=== PATIENT | male | born 1985 | race Two or more races ===

== ENCOUNTER 2020-01-03 06:24 | Outpatient (REF) | payer OTHER, SELFPAY | END 2020-01-03 06:25 | disposition home or self-care (01) | LOC: HO.LAB 06:24 | PROVIDERS: Visit Provider Internal Medicine | DX: Z20.828 Contact with and (suspected) exposure to other viral communicable diseases (principal) | CPT/HCPCS: C9803; U0003 ==

== ENCOUNTER 2020-05-28 07:56 | Outpatient (REF) | payer OTHER, SELFPAY ==
[2020-05-28 08:32] LABS: COVID-19 Test Negative (Negative)
== END 2020-05-28 07:57 | disposition home or self-care (01) ==
LOC: HO.LAB 07:56
PROVIDERS: Visit Provider Internal Medicine
DX: Z20.822 Contact with and (suspected) exposure to COVID-19 (principal)
CPT/HCPCS: 36415; 87635; C9803

== ENCOUNTER 2020-05-31 19:58 | Emergency (ER) | payer SELFPAY ==
[2020-05-31 21:05] VITALS: BP 104/59; PULSE 84; RESP 18; TEMP 36.9; O2SAT 95; BMI 29.0
[2020-05-31 22:37] VITALS: BP 106/60; PULSE 76; RESP 18; TEMP 36.7; O2SAT 95
--- NOTE | 2020-05-31 23:06 | ED.GENADULT ---
HPI - General Adult General Chief complaint: General Medical Stated complaint: SOAR THROAT Time Seen by Provider: 05/31/20 23:01 Source: patient Mode of arrival: ambulatory History of Present Illness HPI narrative: 35-year-old male without significant past medical history who presents with onset of sore throat earlier in the afternoon without associated fevers, chills, cough, or sick contacts. The patient denies any difficulty breathing or swallowing. Related Data Allergies Allergy/AdvReac Type Severity Reaction Status Date / Time No Known Allergies Allergy Verified 05/31/20 21:05 [No Known Allergies*] Review of Systems Review of Systems: Pertinent positives and negatives as stated in HPI 10 point review of systems is otherwise negative. [facility] Past Medical History Source: nursing notes reviewed Medical History No known health problems Social History Social History Advance Directives: No Advance Directives Information Provided: No Physical Exam Vital Signs: Vital Signs: Last Vital Signs Temp 98.1 F 05/31/20 22:37 Pulse 76 05/31/20 22:37 Resp 18 05/31/20 22:37 BP 106/60 05/31/20 22:37 Pulse Ox 95 05/31/20 22:37 Body Mass Index 29.0 VITAL SIGNS: Reviewed. GENERAL: Well developed, well nourished, in no acute distress. HEAD: Normocephalic/atraumatic, EYES: PERRLA, EOMI intact without pain, no nystagmus/pallor/icterus noted EARS: Ext canals without abnormality, TMs non-bulging and non-erythematous NOSE: Nares patent bilateral OROPHARYNX: no oral lesions noted, posterior pharynx clear and non-erythematous without noted tonsillar enlargement/erythema/exudates, no facial/lip/tongue swelling, no tonsillar elevation NECK: Supple, no adenopathy LUNGS: Normal breath sounds. No adventitious sounds or accessory muscle use. SpO2<95> CARDIOVASCULAR: Regular rate and rhythm without noted murmurs ABDOMEN: Soft, non-tender, non-distended with bowel sounds. NEUROLOGIC: Alert and oriented x 4. Course Course Course Narrative: 35-year-old male with bacterial versus viral pharyngitis. Review of all investigations negative for evidence of strep pharyngitis and suspect this may be viral pharyngitis. Patient formed of all results and discharged in stable condition. Discharge Plan Discharge Clinical Impression: Pharyngitis Patient Disposition: Home, Self-Care Instructions: Pharyngitis (ED) Additional Instructions: 1. Recommend using saline gargles (this is a combination of warm tap water combine with table salt) and then gargling for 5-10 minutes, 3 to 4 times a day. Follow-up with your primary care provider for re-evaluation in 2-3 days. Do not hesitate to return to the emergency department should you develop any acute worsening of your symptoms. Referrals: Rodrigue Mena MD [Primary Care Provider] - 2 days (Re-evaluation of pharyngitis)
--- NOTE | 2020-05-31 23:20 | PC.NURSE ---
RAPID STREP SENT. PT TALKING IN FULL SENTENCES. RESP UNLABORED. AIRWAY PATENT. THROAT RED.
== END 2020-06-01 00:03 | disposition home or self-care (01) ==
PROVIDERS: Emergency Provider Student in an Organized Health Care Education/Training Program; PCP Internal Medicine
DX: J02.9 Acute pharyngitis, unspecified (principal)
CPT/HCPCS: 87071; 87880; 99284

== ENCOUNTER 2020-06-27 11:03 | Outpatient (REF) | payer OTHER, SELFPAY ==
[2020-06-27 11:30] LABS: COVID-19 Test Negative (Negative)
== END 2020-06-27 11:04 | disposition home or self-care (01) ==
LOC: HO.LAB 11:03
PROVIDERS: Visit Provider Internal Medicine
DX: Z20.822 Contact with and (suspected) exposure to COVID-19 (principal)
CPT/HCPCS: 36415; 87635; C9803

== ENCOUNTER 2020-08-02 14:25 | Outpatient (REF) | payer OTHER, SELFPAY | END 2020-08-02 14:26 | disposition home or self-care (01) | LOC: HO.LAB 14:25 | PROVIDERS: Visit Provider Internal Medicine | DX: Z20.822 Contact with and (suspected) exposure to COVID-19 (principal) | CPT/HCPCS: C9803; U0003; U0005 ==